=== PATIENT | male | born 1990 | race Caucasian/White ===

== ENCOUNTER 2018-02-26 22:23 | Inpatient (IN) | payer OTHER ==
[~2018-02-26] VITALS: Ht 182.9 cm; Wt 85.0 kg
[2018-02-26 22:30] VITALS: Ht 182.9 cm; Wt 85.0 kg
[2018-02-26 22:52] LABS: BASOPHIL % 0.6 % (0-2); PLATELET COUNT 241 x10^3mcL (130-400); RED CELL DISTRIBUTION WIDTH 12.5 % (11.5-14.5)
[2018-02-26 23:06] LABS: CALCIUM 8.9 mg/dL (8.5-10.1); CARBON DIOXIDE 26.7 mmol/L (21-32); CHLORIDE SERUM 102 mmol/L (98-107); CREATININE SERUM 1.1 mg/dL (0.7-1.3); GFR1 > 60 mL/min; GLUCOSE SERUM 128 mg/dL (74-106); POTASSIUM SERUM 3.3 mmol/L (3.5-5.1); SODIUM SERUM 144 mmol/L (136-145)
[2018-02-26 23:12] LABS: ALBUMIN 4.3 g/dL (3.4-5.0); ALKALINE PHOSPHATASE 90 U/L (46-116); ALT/SGPT 39 U/L (16-63); AST/SGOT 27 U/L (15-37); BILIRUBIN TOTAL 0.53 mg/dL (0.20-1.00); TOTAL PROTEIN, SERUM 7.9 g/dL (6.4-8.2)
[2018-02-26 23:36] LABS: AMPHETAMINE QUAL UR NONE DETECTED (See below)
[2018-02-27 00:42] VITALS: BP 152/65
[2018-02-27 01:12] LABS: CHOLESTEROL/HDL RATIO 2.6; MAGNESIUM 2.2 mg/dL (1.8-2.4)
[2018-02-27 01:16] LABS: T3 TOTAL 0.83 ng/mL
[2018-02-27 01:40] LABS: FREE T4 1.21 ng/dL (0.76-1.46); FREE THYROXINE INDEX 2.6 ug/dL (1.4-4.5); T4(THYROXINE) 7.1 ug/dL (4.7-13.3)
[2018-02-27 05:59] VITALS: BP 123/59
[2018-02-27 09:14] VITALS: BP 142/66
[2018-02-27 13:03] VITALS: BP 114/44
[2018-02-27 15:13] LABS: BASOPHIL % 0.7 % (0-2); PLATELET COUNT 246 x10^3mcL (130-400); RED CELL DISTRIBUTION WIDTH 12.8 % (11.5-14.5)
[2018-02-27 15:30] LABS: CALCIUM 9.1 mg/dL (8.5-10.1); CARBON DIOXIDE 29.8 mmol/L (21-32); CHLORIDE SERUM 105 mmol/L (98-107); CREATININE SERUM 1.3 mg/dL (0.7-1.3); GFR1 > 60 mL/min; GLUCOSE SERUM 111 mg/dL (74-106); MAGNESIUM 1.9 mg/dL (1.8-2.4); PHOSPHOROUS 4.1 mg/dL (2.5-4.9); POTASSIUM SERUM 4.4 mmol/L (3.5-5.1); SODIUM SERUM 147 mmol/L (136-145)
[2018-02-27 17:06] VITALS: BP 146/62
[2018-02-27 20:51] VITALS: BP 115/51
[2018-02-28 00:57] LABS: BASOPHIL % 0.7 % (0-2); PLATELET COUNT 193 x10^3mcL (130-400); RED CELL DISTRIBUTION WIDTH 12.5 % (11.5-14.5)
[2018-02-28 01:09] LABS: CARBON DIOXIDE 31.3 mmol/L (21-32); CHLORIDE SERUM 105 mmol/L (98-107); POTASSIUM SERUM 4.2 mmol/L (3.5-5.1); SODIUM SERUM 142 mmol/L (136-145)
[2018-02-28 01:18] LABS: CALCIUM 8.7 mg/dL (8.5-10.1); CREATININE SERUM 1.2 mg/dL (0.7-1.3); GFR1 > 60 mL/min; GLUCOSE SERUM 105 mg/dL (74-106)
[2018-02-28 06:01] VITALS: BP 122/59
[2018-02-28 06:53] LABS: MAGNESIUM 1.7 mg/dL (1.8-2.4); PHOSPHOROUS 4.7 mg/dL (2.5-4.9)
[2018-02-28 08:44] VITALS: BP 139/62
[2018-02-28] MEDS ORDERED: ATIVAN0.5 M1 PO (11:23)
[2018-02-28 11:51] VITALS: BP 139/62
[2018-02-28 13:33] VITALS: BP 133/55
== END 2018-02-28 14:10 | disposition home or self-care (01) | DRG 92 ==
LOC: ED 22:23 → MU 23:36 → DU 23:36
PROVIDERS: Emergency Medicine; Family Medicine
DX: G92 Toxic encephalopathy (principal); F10.239 Alcohol dependence with withdrawal, unspecified; E87.6 Hypokalemia; Y90.2 Blood alcohol level of 40-59 mg/100 ml; I10 Essential (primary) hypertension; W19.XXXA Unspecified fall, initial encounter; F10.229 Alcohol dependence with intoxication, unspecified; Z68.25 Body mass index [BMI] 25.0-25.9, adult; Y92.018 Other place in single-family (private) house as the place of occurrence of the external cause; Z56.0 Unemployment, unspecified; Y93.89 Activity, other specified; Y99.8 Other external cause status
CPT/HCPCS: 83880; 84439; C9113; G0480; J2060; J2405; J3411; J3420; J3480; J3490; J7030; Q0092